=== PATIENT | male | born 1940 ===

== ENCOUNTER 2018-03-01 10:09 | Emergency (ER) | payer MEDICARE, MEDICAID ==
[2018-03-01 10:23] VITALS: BP 149/79
--- NOTE | 2018-03-01 10:32 | UC ---
Upper Extremity HPI - HPI Summary HPI Summary: Patient is 77 year old gentleman from [facility] who presents today with his son and son-in-law who are interpreting for him and presents for left wrist pain for past 1 week . Symptoms started while pushing of with both hands getting out of bed instantly injured left wrist. denies fall or bilateral pain. Denies any pain in the elbow anymore but now there is swelling and redness of the left wrist. Denies any fever, chills, cough chest pain or shortness of breath . No diaphoresis. Denies any abdominal pain , nausea or vomiting , diarrhea or constipation. He has tried over the counter Tylenol without any improvement in his symptoms. - History of Current Complaint Chief Complaint: UCUpperExtremity Stated Complaint: LEFT ARM SWELLING Time Seen by Provider: 03/01/18 10:19 Hx Obtained From: Family/Shop Clerk - Patient's son and son-in-law who are interpreting for him Pain Intensity: 10 - Allergies/Home Medications Allergies/Adverse Reactions: Allergies Allergy/AdvReac Type Severity Reaction Status Date / Time No Known Allergies Allergy Verified 03/01/18 10:23 Home Medications: Home Medications Acetaminophen TAB* [Tylenol TAB*] 650 mg PO Q4H PRN 03/01/18 [History Confirmed 03/01/18] PMH/Surg Hx/FS Hx/Imm Hx - Additional Past Medical History Additional PMH: Asthma on inhaled bronchodilator Previously Healthy: Yes Other Endocrine History: negative Other Cardiovascular History: negative Respiratory History: Asthma Other Respiratory History: negative Other GI/ History: negative Other Neurological History: negative Other Psychological History: negative Other Cancer History: negative - Surgical History Surgical History: None Surgery Procedure, Year, and Place: denies - Social History Alcohol Use: Occasionally Substance Use Type: None Smoking Status (MU): Never Smoked Tobacco Review of Systems All Other Systems Reviewed And Are Negative: Yes Constitutional: Positive: Negative Skin: Positive: Negative Eyes: Positive: Negative ENT: Positive: Negative Respiratory: Positive: Negative Cardiovascular: Positive: Negative Gastrointestinal: Positive: Negative Genitourinary: Positive: Negative Motor: Positive: Decreased ROM - Left wrist Neurovascular: Positive: Negative Musculoskeletal: Positive: Negative - Left wrist, Arthralgia, Decreased ROM - Left wrist, Edema - Left wrist, Other: - Significant redness and swelling of the left wrist with limited and painful range of motion Neurological: Positive: Negative Psychological: Positive: Negative Is Patient Immunocompromised?: No Physical Exam - Summary Physical Exam Summary: Physical Exam: Const: Appears well. No signs of apparent distress present. Alert and oriented x 3. Musculo: Walks with a normal gait. Head/Face: Atraumatic, normocephalic on inspection. Eyes: EOMI and PERRLA in both eyes. Conjunctivae clear. No discharge noted ENT: Hearing normal, TM normal appearing bilaterally . Respiratory: Respirations are unlabored. Lungs clear to auscultation bilaterally, no wheezing , rhonchi or rales noted . CVS: Regular rate and Rhythm, S1S2 normal , no murmurs identified. Extremities: Peripheral circulation is grossly normal. Pulses 2+ Abdomen : Soft non tender , nondistended , Bowel sounds present . No guarding , rebound tenderness or rigidity noted. Skin: No lesions or rash located on the upper extremities or on the lower extremities. Neuro: Cranial nerves II to XII intact, motor and sensory intact. DTR Intact bilaterally. Mood is normal. Affect is normal. Left wrist: There is swelling and redness of the left wrist with swelling in the dorsal aspect of the hand. Significantly limited range of motion which is very painful. Even slight movement increases pain Left elbow is full range of motion Left forearm: No tenderness to palpation Triage Information Reviewed: Yes Vital Signs: Initial Vital Signs Temp 99.3 F 03/01/18 10:19 Pulse 95 03/01/18 10:19 Resp 20 03/01/18 10:19 BP 149/79 03/01/18 10:19 Pulse Ox 100 03/01/18 10:19 Vital Signs Reviewed: Yes Diagnostics - Radiology No standard instances Radiology Interpretation Completed By: ED Physician, Radiologist - REPORT: Negative for fracture or malalignment aside from mild ulnar plus variance. Mild degenerative arthropathy at the scaphoid trapezium and trapezium first metacarpal articulations. Mild generalized soft tissue swelling without visualized foreign body or subcutaneous emphysema. Peripheral vascular calcifications. IMPRESSION: #. Soft tissue swelling. Negative for fracture. #. Mild osteoarthritis. Summary of Radiographic Findings: Left wrist x-ray:#. Soft tissue swelling. Negative for fracture. #. Mild osteoarthritis. Upper Extremity Course/Dx - Course Course Of Treatment: During the visit today, we obtained left wrist x-ray :# . Soft tissue swelling. Negative for fracture.#. Mild osteoarthritis. . We discussed the findings which could be secondary to gout. Possibility of osteomyelitis cannot be completely ruled out. We discussed further treatment options including sending him to ER for further imaging to evaluate for osteomyelitis. Plan to treat it as gout and if no better or if his symptoms get worse over next 24-48 hours, he will return to urgent care or ER for further testing including advanced imaging to rule out osteomyelitis. I will prescribe the medication to the pharmacy . Patient's son and son-in-law expressed understanding . - Differential Dx/Diagnosis Provider Diagnoses: Gout. Arthritis Discharge - Sign-Out/Discharge Documenting (check all that apply): Patient Departure All imaging exams completed and their final reports reviewed: Yes - Discharge Plan Condition: Stable Disposition: HOME Prescriptions: Indomethacin CAP* [Indocin CAP*] 50 mg PO TID PRN 5 Days #15 cap PRN Reason: Pain predniSONE [Prednisone 20 MG TAB] 20 mg PO DAILY 5 Days #15 tablet Patient Education Materials: Gout (ED) Referrals: Lauri Chavez MD [Primary Care Provider] - 2 Days Additional Instructions: Please start taking the medication as prescribed to the pharmacy . Follow up with your primary care doctor in 2 days. Patients blood pressure slightly high in Urgent care today , plan follow up with PCP for better control Return to Urgent care / ER if symptoms get worse. - Billing Disposition and Condition Condition: STABLE Disposition: Home
== END 2018-03-01 11:32 | disposition home or self-care (01) ==
LOC: UCEAST 10:09
DX: M10.9 Gout, unspecified (principal); J45.909 Unspecified asthma, uncomplicated
CPT/HCPCS: 99212; G0463